=== PATIENT | male | born 1960 | race Caucasian/White ===

== ENCOUNTER 2019-05-18 11:32 | Inpatient (IN) | payer BC ==
[~2019-05-18] VITALS: Ht 180.3 cm; Wt 119.3 kg
[2019-05-18] MEDS ORDERED: MORPHINE SULFATE 10 MG/ML VIAL. IV STA ×2 (13:14→15:08)
[2019-05-18] MEDS ORDERED: ONDANSETRON PF 4 MG/2 ML VIAL. IV ONE (13:15)
[2019-05-18] MEDS ORDERED: IV NORMAL SALINE 1000ML BAG 1,000 ML IV ONE (13:15)
[2019-05-18 13:26] LABS: BASO % 0 % (0-3); EOS # 0.1 x10^3/uL (0.0-0.7); EOS % 1 % (0-3); HEMATOCRIT 45.2 % (39.0-53.0); HEMOGLOBIN 14.9 g/dL (13.0-17.5); LYMPH % 21 % (24-48); MEAN CORPUSCULAR HEMOGLOBIN 29 pg (25-35); MEAN CORPUSCULAR HGB CONC 33 g/dL (31-37); MEAN CORPUSCULAR VOLUME 88 fL (79-100); MONO # 0.4 x10^3/uL (0.0-1.1); MONO % 8 % (0-9); NEUT # 3.4 x10^3/uL (1.8-7.7); NEUT % 70 % (31-73); PLATELET COUNT 163 x10^3/uL (140-400); RED BLOOD COUNT 5.15 x10^6/uL (4.30-5.70); WHITE BLOOD COUNT 4.9 x10^3/uL (4.0-11.0)
[2019-05-18 13:29] LABS: BILIRUBIN,URINE NEGATIVE (NEG); CLARITY,URINE CLEAR; COLOR,URINE YELLOW; NITRITE,URINE NEGATIVE (NEG); PH,URINE 5.5; PROTEIN,URINE NEGATIVE (NEG-TRACE); UROBILINOGEN,URINE 0.2 mg/dL (0.2 mg/dL)
--- NOTE | 2019-05-18 13:34 | PHYS DOC ---
Past Medical History Past Medical History: Anxiety, Constipation, Diabetes-Type II, Diverticulosis, High Cholesterol Additional Past Medical Histor: OBESITY Past Surgical History: Cholecystectomy, Tonsillectomy, Other Additional Past Surgical Histo: KNEE, L BICEP Alcohol Use: None Drug Use: None Adult General Chief Complaint Chief Complaint: ABDOMINAL PAIN HPI HPI Patient is a 59 year old male who presents with Moisés pain. Patient states that in early April he was moving and feels that he tore something in his abdomen and since then has been having decreasing bowel movements. He states the last 3-4 weeks he is not been able to have a bowel movement, states that he has had a couple of times recent pellets, or a little bit diarrhea. The patient also stating he is feeling nauseous. Last week he is tried MiraLAX and stool softeners and has not helped. Pain is 8 out of 10 in severity and sharp. Pain is located in the right lower quadrant. Review of Systems Review of Systems Constitutional: Denies fever or chills [] Eyes: Denies change in visual acuity, redness, or eye pain [] HENT: Denies nasal congestion or sore throat [] Respiratory: Denies cough or shortness of breath [] Cardiovascular: No additional information not addressed in HPI [] GI: Reports abdominal pain, nausea, and constipation. : Denies dysuria or hematuria [] Musculoskeletal: Denies back pain or joint pain [] Integument: Denies rash or skin lesions [] Neurologic: Denies headache, focal weakness or sensory changes [] Endocrine: Denies polyuria or polydipsia [] Complete systems were reviewed and found to be within normal limits, except as documented in this note. Current Medications Current Medications Current Medications Medications (Trade) Dose Ordered Sig/Romi Start Time Stop Time Status Last Admin Dose Admin Cefazolin Sodium/ Dextrose 50 ml @ 100 mls/hr 1X STAT 05/18/19 15:47 05/18/19 16:16 DC Info (CONTRAST GIVEN -- Rx MONITORING) 1 each PRN DAILY PRN 05/18/19 14:00 05/20/19 13:59 Iohexol (Omnipaque 300 Mg/ml) 75 ml 1X ONCE 05/18/19 13:45 05/18/19 13:49 DC 05/18/19 13:59 75 ML Morphine Sulfate (Morphine Sulfate) 5 mg 1X STAT 05/18/19 15:08 05/18/19 15:10 DC 05/18/19 15:23 5 MG Ondansetron HCl (Zofran) 4 mg 1X ONCE 05/18/19 13:15 05/18/19 13:19 DC 05/18/19 13:33 4 MG Sodium Chloride 1,000 ml @ 1,000 mls/hr 1X ONCE 05/18/19 13:15 05/18/19 14:14 DC 05/18/19 13:32 1,000 MLS/HR Vancomycin HCl 2 gm/Sodium Chloride 500 ml @ 250 mls/hr 1X ONCE 05/18/19 16:30 05/18/19 18:29 Allergies Allergies Allergies Coded Allergies Type Severity Reaction Last Updated Verified codeine Allergy Intermediate 05/18/19 Yes prochlorperazine Allergy Intermediate 05/18/19 Yes Physical Exam Physical Exam Constitutional: Well developed, well nourished, no acute distress, non-toxic ap pearance. [] HENT: Normocephalic, atraumatic, bilateral external ears normal, oropharynx moist, no oral exudates, nose normal. [] Eyes: PERRLA, EOMI, conjunctiva normal, no discharge. [] Neck: Normal range of motion, no tenderness, supple, no stridor. [] Cardiovascular:Heart rate regular rhythm, no murmur [] Lungs & Thorax: Bilateral breath sounds clear to auscultation [] Abdomen: Bowel sounds hypoactive, soft, RLQ tenderness with guarding and warmth. There is mild erythema on lower abdomen. Skin: mild erythema on abdomen. Neurologic: Alert and oriented X 3, normal motor function, normal sensory function, no focal deficits noted. [] Psychologic: Affect normal, judgement normal, mood normal. [] Current Patient Data Vital Signs Vital Signs Date Time Temp Pulse Resp B/P (MAP) Pulse Ox O2 Delivery O2 Flow Rate FiO2 05/18/19 11:32 97.8 98 18 156/100 (118) 94 Room Air 97.8 Lab Values Laboratory Tests Test 05/18/19 13:00 White Blood Count 4.9 x10^3/uL (4.0-11.0) Red Blood Count 5.15 x10^6/uL (4.30-5.70) Hemoglobin 14.9 g/dL (13.0-17.5) Hematocrit 45.2 % (39.0-53.0) Mean Corpuscular Volume 88 fL (79-100) Mean Corpuscular Hemoglobin 29 pg (25-35) Mean Corpuscular Hemoglobin Concent 33 g/dL (31-37) Red Cell Distribution Width 15.0 % (11.5-14.5) H Platelet Count 163 x10^3/uL (140-400) Neutrophils (%) (Auto) 70 % (31-73) Lymphocytes (%) (Auto) 21 % (24-48) L Monocytes (%) (Auto) 8 % (0-9) Eosinophils (%) (Auto) 1 % (0-3) Basophils (%) (Auto) 0 % (0-3) Neutrophils # (Auto) 3.4 x10^3/uL (1.8-7.7) Lymphocytes # (Auto) 1.0 x10^3/uL (1.0-4.8) Monocytes # (Auto) 0.4 x10^3/uL (0.0-1.1) Eosinophils # (Auto) 0.1 x10^3/uL (0.0-0.7) Basophils # (Auto) 0.0 x10^3/uL (0.0-0.2) Urine Collection Type Unknown Urine Color Yellow Urine Clarity Clear Urine pH 5.5 Urine Specific [place] >=1.030 Urine Protein Negative mg/dL (NEG-TRACE) Urine Glucose (UA) >=1000 mg/dL (NEG) Urine Ketones (Stick) Trace mg/dL (NEG) Urine Blood Negative (NEG) Urine Nitrite Negative (NEG) Urine Bilirubin Negative (NEG) Urine Urobilinogen Dipstick 0.2 mg/dL (0.2 mg/dL) Urine Leukocyte Esterase Negative (NEG) Urine RBC Occ /HPF (0-2) Urine WBC Occ /HPF (0-4) Urine Squamous Epithelial Cells Few /LPF Urine Bacteria 0 /HPF (0-FEW) Urine Mucus Slight /LPF Sodium Level 139 mmol/L (136-145) Potassium Level 4.2 mmol/L (3.5-5.1) Chloride Level 102 mmol/L (98-107) Carbon Dioxide Level 30 mmol/L (21-32) Anion Gap 7 (6-14) Blood Urea Nitrogen 8 mg/dL (8-26) Creatinine 0.7 mg/dL (0.7-1.3) Estimated GFR (Cockcroft-Gault) 115.0 BUN/Creatinine Ratio 11 (6-20) Glucose Level 122 mg/dL (70-99) H Lactic Acid Level 1.6 mmol/L (0.4-2.0) Calcium Level 8.9 mg/dL (8.5-10.1) Total Bilirubin 0.7 mg/dL (0.2-1.0) Aspartate Amino Transferase (AST) 37 U/L (15-37) Alanine Aminotransferase (ALT) 41 U/L (16-63) Alkaline Phosphatase 56 U/L (46-116) Total Protein 7.3 g/dL (6.4-8.2) Albumin 3.8 g/dL (3.4-5.0) Albumin/Globulin Ratio 1.1 (1.0-1.7) Lipase 83 U/L (73-393) Laboratory Tests 05/18/19 13:00 Laboratory Tests 05/18/19 13:00 EKG EKG [] Radiology/Procedures Radiology/Procedures [][facility] [address] [place] [address] IMAGING REPORT Signed PATIENT: WENDY MAHONEY ACCOUNT: [id number] : 1960 LOCATION: ER AGE: 59 SEX: M EXAM STATUS: REG ER ORD. PHYSICIAN: BRITTNEY GILMORE APRN REASON: RLQ abdominal pain, nausea, no BM PROCEDURE: CT ABD PELV W/ IV CONTRST ONLY CT study of the abdomen and pelvis with contrast Clinical indications: Right lower quadrant abdominal pain with nausea. No bowel movement. TECHNIQUE: After IV infusion of 75 cc of Omnipaque 300, helical CT scanning of the abdomen and pelvis was performed. No GI contrast was administered. This may decrease the sensitivity to detect GI tract pathology. PQRS compliance Statement One or more of the following individualized dose reduction techniques were utilized for this study: 1. Automated exposure control 2. Adjustment of the mA and/or kV according to patient size 3. Use of iterative reconstruction technique COMPARISON: None available. FINDINGS: Diffuse fatty infiltration of the liver is seen. The spleen is not enlarged. Fatty atrophy of the head and neck of the pancreas is seen. No pancreatic mass is seen. Gallbladder is surgically absent. No extrahepatic biliary ductal dilatation is seen. No adrenal mass is evident. Both kidneys are normal without hydronephrosis. No focal aneurysmal dilatation of the abdominal aorta is seen. No enlarged abdominal or pelvic lymphadenopathy is seen. Urinary bladder wall is smooth. The terminal ileum and appendix are normal. No obstructive bowel pattern is evident. No free air or free fluid or mesenteric edema is seen. No abnormal fecal retention is seen. Mild colonic diverticulosis is seen without diverticulitis. Calcified granuloma of the right middle lobe is seen. No lytic process is seen. IMPRESSION: There is subcutaneous edema of the lower abdominal wall on both sides more prominent on the right side. This could be due to bruising or cellulitis if there are clinical findings of such. No fluid collection or abscess is seen here. No anterior abdominal wall hernia is evident. No other acute abnormality of the abdomen or pelvis is seen. Electronically signed by: Laura Crandall MD (05/18/2019 2:25 PM) [id number] DICTATED and SIGNED BY: LAURA CRANDALL MD DATE: 05/18/19 1425 Course & Med Decision Making Course & Med Decision Making Pertinent Labs and Imaging studies reviewed. (See chart for details) Will get labs, CT, and UA. Will give supportive care. Labs, and UA are unremarkable. CT shows: IMPRESSION: There is subcutaneous edema of the lower abdominal wall on both sides more prominent on the right side. This could be due to bruising or cellulitis if there are clinical findings of such. No fluid collection or abscess is seen here. No anterior abdominal wall hernia is evident. No other acute abnormality of the abdomen or pelvis is seen. Electronically signed by: Laura Crandall MD (05/18/2019 2:25 PM) [id number] Discussed the case with Dr. Carroll who states that there is no intervention from general surgery standpoint. He suggests to just treat the cellulitis with labs being unremarkable. Dr. Ramirez (ER ATTENDING examined patient as well) will admit to hospital and place on [place]. Will page Dr. Bryson. Discussed with Dr. Bryson ([id number]) who accepts admission to hospital. Will order Vancomycin. Mateo Disclaimer Mateo Disclaimer This electronic medical record was generated, in whole or in part, using a voice recognition dictation system. Departure Departure Impression: Primary Impression: Cellulitis Additional Impression: Intractable abdominal pain Disposition: ADMITTED INPATIENT Admitting Physician: LELAND Condition: STABLE Referrals: [facility] [facility] REPRESENTATIVE (PCP) Problem Qualifiers Primary Impression: Cellulitis Site of cellulitis: other site Qualified Codes: L03.818 - Cellulitis of other sites BRITTNEY GILMORE APRN May 18, 2019 13:34
[2019-05-18 13:36] LABS: CALCIUM 8.9 mg/dL (8.5-10.1); CREATININE 0.7 mg/dL (0.7-1.3); POTASSIUM 4.2 mmol/L (3.5-5.1)
[2019-05-18 13:39] LABS: SQUAMOUS EPITHELIAL CELL,UR FEW /LPF
[2019-05-18 13:40] LABS: BACTERIA,URINE 0 /HPF (0-FEW); RBC,URINE OCC /HPF (0-2); WBC,URINE OCC /HPF (0-4)
[2019-05-18] MEDS ORDERED: IOHEXOL 300 MG/ML 100ML VIAL. IV ONE (13:45)
[2019-05-18 13:49] LABS: ALBUMIN 3.8 g/dL (3.4-5.0); ALBUMIN/GLOBULIN RATIO 1.1 (1.0-1.7); TOTAL BILIRUBIN 0.7 mg/dL (0.2-1.0); TOTAL PROTEIN 7.3 g/dL (6.4-8.2)
[2019-05-18] MEDS ORDERED: CONTRAST GIVEN. MC PRN (14:00)
--- NOTE | 2019-05-18 14:28 | RAD ---
CT study of the abdomen and pelvis with contrast Clinical indications: Right lower quadrant abdominal pain with nausea. No bowel movement. TECHNIQUE: After IV infusion of 75 cc of Omnipaque 300, helical CT scanning of the abdomen and pelvis was performed. No GI contrast was administered. This may decrease the sensitivity to detect GI tract pathology. PQRS compliance Statement One or more of the following individualized dose reduction techniques were utilized for this study: 1. Automated exposure control 2. Adjustment of the mA and/or kV according to patient size 3. Use of iterative reconstruction technique COMPARISON: None available. FINDINGS: Diffuse fatty infiltration of the liver is seen. The spleen is not enlarged. Fatty atrophy of the head and neck of the pancreas is seen. No pancreatic mass is seen. Gallbladder is surgically absent. No extrahepatic biliary ductal dilatation is seen. No adrenal mass is evident. Both kidneys are normal without hydronephrosis. No focal aneurysmal dilatation of the abdominal aorta is seen. No enlarged abdominal or pelvic lymphadenopathy is seen. Urinary bladder wall is smooth. The terminal ileum and appendix are normal. No obstructive bowel pattern is evident. No free air or free fluid or mesenteric edema is seen. No abnormal fecal retention is seen. Mild colonic diverticulosis is seen without diverticulitis. Calcified granuloma of the right middle lobe is seen. No lytic process is seen. IMPRESSION: There is subcutaneous edema of the lower abdominal wall on both sides more prominent on the right side. This could be due to bruising or cellulitis if there are clinical findings of such. No fluid collection or abscess is seen here. No anterior abdominal wall hernia is evident. No other acute abnormality of the abdomen or pelvis is seen. Electronically signed by: Yahir Crandall MD (05/18/2019 2:25 PM) [id number]
[2019-05-18] MEDS ORDERED: ONDANSETRON PF 4 MG/2 ML VIAL. IV PRN ×2 (16:30→20:30)
[2019-05-18] MEDS ORDERED: VANCOMYCIN 2 GM in IV NORMAL SALINE 500ML BAG 500 ML IV ONE (16:30)
[2019-05-18] MEDS ORDERED: MORPHINE SULFATE 4 MG/ML VIAL. IV PRN (16:30)
--- NOTE | 2019-05-18 17:12 | PDOC1 ---
History and Physical Date of Admission Date of Admission DATE: 05/18/19 TIME: 17:09 Identification/Chief Complaint Chief Complaint Abdominal Pain Source Source: Patient History of Present Illness History of Present Illness Mr Thompson is a 59yo M w/ PMHx Anxiety, Constipation, Diabetes-Type II, Diverticulosis, High Cholesterol, obesity, who p/w abdominal pain. Patient states that in early April he was moving and feels that he tore something in his abdomen and since then has been having decreasing bowel movements. He states the last 3-4 weeks he is not been able to have a bowel movement, states that he has had a couple of times recent pellets, or a little bit diarrhea. The patient also stating he is feeling nauseous. Last week he is tried MiraLAX and stool softeners and has not helped. Pain is 8 out of 10 in severity and sharp. Pain is located in the right lower quadrant. He does note he injects insulin, but states his injection sites are lower than his symptom site. Abdominal CT consistent with abdominal wall cellulitis, no intraabdominal pathology other than diverticulosis. He notes his bowel movements have been different ever since his cholecystectomy. Past Medical History Cardiovascular: Hyperlipidemia Psych: Anxiety Endocrine: Diabetes Past Surgical History Past Surgical History: Cholecystectomy, Total knee replacement, Tonsillectomy Family History Family History: Diabetes, High Cholestrol Social History Smoke: No ALCOHOL: none Drugs: None Current Problem List Problem List Problems Medical Problems: (1) Cellulitis Status: Acute (2) Intractable abdominal pain Status: Acute Current Medications Current Medications Current Medications Sodium Chloride 1,000 ml @ 1,000 mls/hr 1X ONCE IV Last administered on 05/18/19at 13:32; Start 05/18/19 at 13:15; Stop 05/18/19 at 14:14; Status DC Ondansetron HCl (Zofran) 4 mg 1X ONCE IV Last administered on 05/18/19at 13:33; Start 05/18/19 at 13:15; Stop 05/18/19 at 13:19; Status DC Morphine Sulfate (Morphine Sulfate) 5 mg 1X STAT IV Last administered on 05/18/19at 13:33; Start 05/18/19 at 13:14; Stop 05/18/19 at 13:24; Status DC Iohexol (Omnipaque 300 Mg/ml) 75 ml 1X ONCE IV Last administered on 05/18/19at 13:59; Start 05/18/19 at 13:45; Stop 05/18/19 at 13:49; Status DC Info (CONTRAST GIVEN -- Rx MONITORING) 1 each PRN DAILY PRN MC SEE COMMENTS; Start 05/18/19 at 14:00; Stop 05/20/19 at 13:59 Morphine Sulfate (Morphine Sulfate) 5 mg 1X STAT IV Last administered on 05/18/19at 15:23; Start 05/18/19 at 15:08; Stop 05/18/19 at 15:10; Status DC Cefazolin Sodium/ Dextrose 50 ml @ 100 mls/hr 1X STAT IV Last administered on 05/18/19at 16:24; Start 05/18/19 at 15:47; Stop 05/18/19 at 16:16; Status DC Vancomycin HCl 2 gm/Sodium Chloride 500 ml @ 250 mls/hr 1X ONCE IV ; Start 05/18/19 at 16:30; Stop 05/18/19 at 18:29 Ondansetron HCl (Zofran) 4 mg PRN Q8HRS PRN IV NAUSEA/VOMITING; Start 05/18/19 at 16:30; Stop 05/19/19 at 16:29 Morphine Sulfate (Morphine Sulfate) 4 mg PRN Q2HR PRN IV PAIN; Start 05/18/19 at 16:30; Stop 05/19/19 at 16:29 Allergies Allergies: Coded Allergies: codeine (Verified Allergy, Intermediate, 05/18/19) prochlorperazine (Verified Allergy, Intermediate, 05/18/19) ROS General: YES: Fatigue, Malaise; No: Chills, Night Sweats, Appetite, Other PSYCHOLOGICAL ROS: No: Anxiety, Behavioral Disorder, Concentration difficultie, Decreased libido, Depression, Disorientation, Hallucinations, Hostility, Irritablity, Memory difficulties, Mood Swings, Obsessive thoughts, Physical abuse, Sexual abuse, Sleep disturbances, Suicidal ideation, Other Eyes: No Blurry vision, No Decreased vision, No Double vision, No Dry eyes, No Excessive tearing, No Eye Pain, No Itchy Eyes, No Loss of vision, No Photophobia, No Scotomata, No Uses contacts, No Uses glasses, No Other HEENT: No: Heacaches, Visual Changes, Hearing change, Nasal congestion, Nasal discharge, Oral lesions, Sinus pain, Sore Throat, Epistaxis, Sneezing, Snoring, Tinnitus, Vertigo, Vocal changes, Other ALLERGY AND IMMUNOLOGY: No: Hives, Insect Bite Sensitivity, Itchy/Watery Eyes, Nasal Congestion, Post Nasal Drip, Seasonal Allergies, Other Hematological and Lymphatic: No: Bleeding Problems, Blood Clots, Blood Transfusions, Brusing, Night Sweats, Pallor, Swollen Lymph Nodes, Other ENDOCRINE: No: Breast Changes, Galactorrhea, Hair Pattern Changes, Hot Flashes, Malaise/lethargy, Mood Swings, Palpitations, Polydipsia/polyuria, Skin Changes, Temperature Intolerance, Unexpected Weight Changes, Other Breast: No New/Changing Breast Lumps, No Nipple changes, No Nipple discharge, No Other Respiratory: No: Cough, Hemoptysis, Orthopnea, Pleuritic Pain, Shortness of breath, SOB with excertion, Sputum Changes, Stridor, Tachypnea, Wheezing, Other Cardiovascular: No Chest Pain, No Palpitations, No Orthopnea, No Paroxysmal Noc. Dyspnea, No Edema, No Lt Headedness, No Other Gastrointestinal: Yes Nausea, Yes Abdominal Pain, Yes Diarrhea, Yes Constipation; No Vomiting, No Melena, No Hematochezia, No Other Genitourinary: No Dysuria, No Frequency, No Incontinence, No Hematuria, No Retention, No Discharge, No Urgency, No Pain, No Flank Pain, No Other, No , No , No , No , No , No , No Musculoskeletal: No Gait Disturbance, No Joint Pain, No Joint Stiffness, No Joint Swelling, No Muscle Pain, No Muscular Weakness, No Pain In:, No Swelling In:, No Other Neurological: No Behavorial Changes, No Bowel/Bladder ControlChng, No Confusion, No Dizziness, No Gait Disturbance, No Headaches, No Impaired Coord/balance, No Memory Loss, No Numbness/Tingling, No Seizures, No Speech Problems, No Tremors, No Visual Changes, No Weakness, No Other Skin: No Dry Skin, No Eczema, No Hair Changes, No Lumps, No Mole Changes, No Mottling, No Nail Changes, No Pruritus, No Rash, No Skin Lesion Changes, No Other, No Acne Physical Exam General: Alert, Oriented X3, Cooperative, No acute distress HEENT: Atraumatic, PERRLA, EOMI, Mucous membr. moist/pink Lungs: Clear to auscultation, Normal air movement Heart: S1S2, RRR, no thrills, no rubs, no gallops, no murmurs Abdomen: Normal bowel sounds, No hepatosplenomegaly, No masses, Other (diffusely tender, red, warm on right abdominal wall, marked) Rectal Exam: not examined Extremities: No clubbing, No cyanosis, No edema, Normal pulses, No tenderness/swelling Skin: No breakdown, No significant lesion, Other (Abdominal rash on right abdominal wall) Neuro: Normal gait, Normal speech, Strength at 5/5 X4 ext, Normal tone, Sensation intact, Cranial nerves 3-12 NL, Reflexes 2+ Psych/Mental Status: Mental status NL, Mood NL Vitals Vitals Vital Signs Date Time Temp Pulse Resp B/P (MAP) Pulse Ox O2 Delivery O2 Flow Rate FiO2 05/18/19 11:32 97.8 98 18 156/100 (118) 94 Room Air 97.8 Labs Labs Laboratory Tests Test 05/18/19 13:00 White Blood Count 4.9 x10^3/uL (4.0-11.0) Red Blood Count 5.15 x10^6/uL (4.30-5.70) Hemoglobin 14.9 g/dL (13.0-17.5) Hematocrit 45.2 % (39.0-53.0) Mean Corpuscular Volume 88 fL (79-100) Mean Corpuscular Hemoglobin 29 pg (25-35) Mean Corpuscular Hemoglobin Concent 33 g/dL (31-37) Red Cell Distribution Width 15.0 % (11.5-14.5) Platelet Count 163 x10^3/uL (140-400) Neutrophils (%) (Auto) 70 % (31-73) Lymphocytes (%) (Auto) 21 % (24-48) Monocytes (%) (Auto) 8 % (0-9) Eosinophils (%) (Auto) 1 % (0-3) Basophils (%) (Auto) 0 % (0-3) Neutrophils # (Auto) 3.4 x10^3/uL (1.8-7.7) Lymphocytes # (Auto) 1.0 x10^3/uL (1.0-4.8) Monocytes # (Auto) 0.4 x10^3/uL (0.0-1.1) Eosinophils # (Auto) 0.1 x10^3/uL (0.0-0.7) Basophils # (Auto) 0.0 x10^3/uL (0.0-0.2) Urine Collection Type Unknown Urine Color Yellow Urine Clarity Clear Urine pH 5.5 Urine Specific [place] >=1.030 Urine Protein Negative mg/dL (NEG-TRACE) Urine Glucose (UA) >=1000 mg/dL (NEG) Urine Ketones (Stick) Trace mg/dL (NEG) Urine Blood Negative (NEG) Urine Nitrite Negative (NEG) Urine Bilirubin Negative (NEG) Urine Urobilinogen Dipstick 0.2 mg/dL (0.2 mg/dL) Urine Leukocyte Esterase Negative (NEG) Urine RBC Occ /HPF (0-2) Urine WBC Occ /HPF (0-4) Urine Squamous Epithelial Cells Few /LPF Urine Bacteria 0 /HPF (0-FEW) Urine Mucus Slight /LPF Sodium Level 139 mmol/L (136-145) Potassium Level 4.2 mmol/L (3.5-5.1) Chloride Level 102 mmol/L (98-107) Carbon Dioxide Level 30 mmol/L (21-32) Anion Gap 7 (6-14) Blood Urea Nitrogen 8 mg/dL (8-26) Creatinine 0.7 mg/dL (0.7-1.3) Estimated GFR (Cockcroft-Gault) 115.0 BUN/Creatinine Ratio 11 (6-20) Glucose Level 122 mg/dL (70-99) Lactic Acid Level 1.6 mmol/L (0.4-2.0) Calcium Level 8.9 mg/dL (8.5-10.1) Total Bilirubin 0.7 mg/dL (0.2-1.0) Aspartate Amino Transf (AST/SGOT) 37 U/L (15-37) Alanine Aminotransferase (ALT/SGPT) 41 U/L (16-63) Alkaline Phosphatase 56 U/L (46-116) Total Protein 7.3 g/dL (6.4-8.2) Albumin 3.8 g/dL (3.4-5.0) Albumin/Globulin Ratio 1.1 (1.0-1.7) Lipase 83 U/L (73-393) Laboratory Tests Test 05/18/19 13:00 White Blood Count 4.9 x10^3/uL (4.0-11.0) Red Blood Count 5.15 x10^6/uL (4.30-5.70) Hemoglobin 14.9 g/dL (13.0-17.5) Hematocrit 45.2 % (39.0-53.0) Mean Corpuscular Volume 88 fL (79-100) Mean Corpuscular Hemoglobin 29 pg (25-35) Mean Corpuscular Hemoglobin Concent 33 g/dL (31-37) Red Cell Distribution Width 15.0 % (11.5-14.5) Platelet Count 163 x10^3/uL (140-400) Neutrophils (%) (Auto) 70 % (31-73) Lymphocytes (%) (Auto) 21 % (24-48) Monocytes (%) (Auto) 8 % (0-9) Eosinophils (%) (Auto) 1 % (0-3) Basophils (%) (Auto) 0 % (0-3) Neutrophils # (Auto) 3.4 x10^3/uL (1.8-7.7) Lymphocytes # (Auto) 1.0 x10^3/uL (1.0-4.8) Monocytes # (Auto) 0.4 x10^3/uL (0.0-1.1) Eosinophils # (Auto) 0.1 x10^3/uL (0.0-0.7) Basophils # (Auto) 0.0 x10^3/uL (0.0-0.2) Urine Collection Type Unknown Urine Color Yellow Urine Clarity Clear Urine pH 5.5 Urine Specific [place] >=1.030 Urine Protein Negative mg/dL (NEG-TRACE) Urine Glucose (UA) >=1000 mg/dL (NEG) Urine Ketones (Stick) Trace mg/dL (NEG) Urine Blood Negative (NEG) Urine Nitrite Negative (NEG) Urine Bilirubin Negative (NEG) Urine Urobilinogen Dipstick 0.2 mg/dL (0.2 mg/dL) Urine Leukocyte Esterase Negative (NEG) Urine RBC Occ /HPF (0-2) Urine WBC Occ /HPF (0-4) Urine Squamous Epithelial Cells Few /LPF Urine Bacteria 0 /HPF (0-FEW) Urine Mucus Slight /LPF Sodium Level 139 mmol/L (136-145) Potassium Level 4.2 mmol/L (3.5-5.1) Chloride Level 102 mmol/L (98-107) Carbon Dioxide Level 30 mmol/L (21-32) Anion Gap 7 (6-14) Blood Urea Nitrogen 8 mg/dL (8-26) Creatinine 0.7 mg/dL (0.7-1.3) Estimated GFR (Cockcroft-Gault) 115.0 BUN/Creatinine Ratio 11 (6-20) Glucose Level 122 mg/dL (70-99) Lactic Acid Level 1.6 mmol/L (0.4-2.0) Calcium Level 8.9 mg/dL (8.5-10.1) Total Bilirubin 0.7 mg/dL (0.2-1.0) Aspartate Amino Transf (AST/SGOT) 37 U/L (15-37) Alanine Aminotransferase (ALT/SGPT) 41 U/L (16-63) Alkaline Phosphatase 56 U/L (46-116) Total Protein 7.3 g/dL (6.4-8.2) Albumin 3.8 g/dL (3.4-5.0) Albumin/Globulin Ratio 1.1 (1.0-1.7) Lipase 83 U/L (73-393) Images Images CT abdomen/pelvis - Diffuse fatty infiltration of the liver is seen. The spleen is not enlarged. Fatty atrophy of the head and neck of the pancreas is seen. No pancreatic mass is seen. Gallbladder is surgically absent. No extrahepatic biliary ductal dilatation is seen. No adrenal mass is evident. Both kidneys are normal without hydronephrosis. No focal aneurysmal dilatation of the abdominal aorta is seen. No enlarged abdominal or pelvic lymphadenopathy is seen. Urinary bladder wall is smooth. The terminal ileum and appendix are normal. No obstructive bowel pattern is evident. No free air or free fluid or mesenteric edema is seen. No abnormal fecal retention is seen. Mild colonic diverticulosis is seen without diverticulitis. Calcified granuloma of the right middle lobe is seen. No lytic process is seen. IMPRESSION: There is subcutaneous edema of the lower abdominal wall on both sides more prominent on the right side. This could be due to bruising or cellulitis if there are clinical findings of such. No fluid collection or abscess is seen here. No anterior abdominal wall hernia is evident. No other acute abnormality of the abdomen or pelvis is seen. VTE Prophylaxis Ordered VTE Prophylaxis Devices: Yes VTE Pharmacological Prophylaxi: Yes Assessment/Plan Assessment/Plan A/P: Abdominal wall cellulitis - empiric vancomycin and ancef for staph and strep coverage. Change insulin injection sites Intractable abdominal pain - unable to take PO currently due to nausea with pain. Will treat with IV anti-emetics and IV pain medication Headache - will trial on IV toradol Anxiety - counseled on relaxation Constipation - with Diverticulosis - will increase fiber High Cholesterol - will reconcile meds, statin Diabetes-Type II - basal bolus plus insulin while inpatient Fatty liver - found on CT, likely related to DM2, weight Obesity - counseled on weight loss, diet FEN - ADA diet PPX - lovenox FULL CODE Dispo - inpatient for abdominal pain. SARAH CHUNG MD May 18, 2019 17:12
[2019-05-18] MEDS ORDERED: ACETAMINOPHEN 500 MG TABLET PO STA (17:56)
[2019-05-18] MEDS ORDERED: DEXTROSE 50% 25 GM / 50ML DISP.SYRIN. IV PRN (20:30)
[2019-05-18] MEDS ORDERED: oxyCODONE/APAP 5/325 1 TAB TABLET PO PRN (20:30)
[2019-05-18] MEDS ORDERED: VANCOMYCIN PER PHARMACY MC PRN (20:30)
[2019-05-18] MEDS ORDERED: DICYCLOMINE HCL 10 MG CAPSULE PO PRN (20:30)
[2019-05-18] MEDS ORDERED: ACETAMINOPHEN 500 MG TABLET PO PRN (20:30)
[2019-05-18] MEDS ORDERED: IV DEXTROSE 5% 250 ML BAG. IV PRN (20:30)
[2019-05-18] MEDS ORDERED: KETOROLAC 30 MG/ML VIAL. IVP PRN (20:30)
--- NOTE | 2019-05-18 20:43 | NUR ---
Pharmacy Vancomycin Dosing Note S:Consulted to monitor and dose vancomycin started 05/18/19. O:WENDY MAHONEY is a 59 year old M with abdominal wall cellulitis. Height: 5 feet, 11 inches Weight: 130.6 kg Dosing Weight: Actual Other Antibiotics: CEFAZOLIN 2G IV Q8HRS LABS: Last BUN: 8 Last Creatinine: 0.7 Creatinine Clearance: > 120 mL/min Last WBC: 4.9 Tmax (past 24 hours): 97.8 Microbiology: N/A A: Patient requires vancomycin for abdominal wall cellulitis, goal trough 10-20 mcg/ml. His SCr is 0.7 with an eCrCl of > 120 ml/min. Initiate the following: P: 1. Initiate Vancomycin 2000 mg IV x 1 dose, then 1500 mg IV q8h 2. Follow up Trough level on 05/19/19 at 1630 3. Pharmacy will continue to monitor, follow and adjust therapy as needed. CHICO EWING [facility], 05/18/19 [id number]
[2019-05-18 21:00] VITALS: BP 117/74
[2019-05-18] MEDS: PSYLLIUM HUSK (SUGAR FREE) 1 PKT PACKET PO SCH (22:04)
[2019-05-18] MEDS: INSULIN LISPRO 300 UNITS/3 ML VIAL. SQ SCH (22:10)
[2019-05-18 23:00] VITALS: BP 125/63
[2019-05-19] MEDS: VANCOMYCIN 1.5 GM in IV NORMAL SALINE 500ML BAG 500 ML IV SCH ×2 (00:32→10:03)
[2019-05-19 03:00] VITALS: BP 131/71
--- NOTE | 2019-05-19 03:52 | NUR ---
Patient arrived to floor on 05/18/19 @ 1935 hours. This RN received report from [facility]. Patient arrived to floor accompanied by his . Patient currently has a pain rating of 7 out of 10. Patient complaint of pain in right medial abdomen, describes it as throbbing and comes in intervals. Patient stomach displays no signs of redness. Patient bed was placed in the lowest position and locked. Call light was placed within reach of the patient. This RN will continue to monitor the patient.
[2019-05-19 06:48] LABS: CREATININE 0.6 mg/dL (0.7-1.3); GFR 137.4
[2019-05-19 07:00] VITALS: BP 126/62
[2019-05-19] MEDS: INSULIN LISPRO 300 UNITS/3 ML VIAL. SQ SCH ×4 (07:30→21:00)
[2019-05-19] MEDS ORDERED: VANCOMYCIN 1.75 GM in IV NORMAL SALINE 500ML BAG 500 ML IV SCH (07:30)
--- NOTE | 2019-05-19 08:22 | PDOC ---
PROGRESS NOTES Chief Complaint Chief Complaint A/P: Abdominal wall cellulitis - empiric vancomycin and ancef for staph and strep coverage. Change insulin injection sites. Will change to PO antibiotics given his improvement Intractable abdominal pain - unable to take PO currently due to nausea with pain. Will treat with IV anti-emetics and IV pain medication Headache - will trial on IV toradol Anxiety - counseled on relaxation Constipation - with Diverticulosis - will increase fiber High Cholesterol - will reconcile meds, statin Diabetes-Type II - basal bolus plus insulin while inpatient Fatty liver - found on CT, likely related to DM2, weight Obesity - counseled on weight loss, diet FEN - ADA diet PPX - lovenox FULL CODE Dispo - inpatient for abdominal pain. History of Present Illness History of Present Illness Mr Thompson is a 59yo M w/ PMHx Anxiety, Constipation, Diabetes-Type II, Diverticulosis, High Cholesterol, obesity, who p/w abdominal pain. Patient states that in early April he was moving and feels that he tore something in his abdomen and since then has been having decreasing bowel movements. He states the last 3-4 weeks he is not been able to have a bowel movement, states that he has had a couple of times recent pellets, or a little bit diarrhea. The patient also stating he is feeling nauseous. Last week he is tried MiraLAX and stool softeners and has not helped. Pain is 8 out of 10 in severity and sharp. Pain is located in the right lower quadrant. He does note he injects insulin, but states his injection sites are lower than his symptom site. Abdominal CT consistent with abdominal wall cellulitis, no intraabdominal pathology other than diverticulosis. He notes his bowel movements have been different. His abdominal wall has improved, but his bowels have worsened, had voluminous watery BM this morning. No change in his appetite, eating very well. On further review, notes he has had multiple prior colonoscopies. Vitals Vitals Vital Signs Date Time Temp Pulse Resp B/P (MAP) Pulse Ox O2 Delivery O2 Flow Rate FiO2 05/19/19 07:00 98.4 80 18 126/62 (83) 94 Room Air 98.4 Physical Exam General: Alert, Oriented X3, Cooperative, No acute distress Abdomen: Normal bowel sounds, No hepatosplenomegaly, No masses, Other (diffusely tender, red, warm on right abdominal wall, marked) Extremities: No clubbing, No cyanosis, No edema, Normal pulses, No tenderness/swelling Skin: No breakdown, No significant lesion, Other (Abdominal rash on right abdominal wall) Labs LABS Laboratory Tests Test 05/18/19 13:00 05/18/19 18:37 05/18/19 20:34 05/19/19 04:13 White Blood Count 4.9 x10^3/uL (4.0-11.0) Red Blood Count 5.15 x10^6/uL (4.30-5.70) Hemoglobin 14.9 g/dL (13.0-17.5) Hematocrit 45.2 % (39.0-53.0) Mean Corpuscular Volume 88 fL (79-100) Mean Corpuscular Hemoglobin 29 pg (25-35) Mean Corpuscular Hemoglobin Concent 33 g/dL (31-37) Red Cell Distribution Width 15.0 % (11.5-14.5) Platelet Count 163 x10^3/uL (140-400) Neutrophils (%) (Auto) 70 % (31-73) Lymphocytes (%) (Auto) 21 % (24-48) Monocytes (%) (Auto) 8 % (0-9) Eosinophils (%) (Auto) 1 % (0-3) Basophils (%) (Auto) 0 % (0-3) Neutrophils # (Auto) 3.4 x10^3/uL (1.8-7.7) Lymphocytes # (Auto) 1.0 x10^3/uL (1.0-4.8) Monocytes # (Auto) 0.4 x10^3/uL (0.0-1.1) Eosinophils # (Auto) 0.1 x10^3/uL (0.0-0.7) Basophils # (Auto) 0.0 x10^3/uL (0.0-0.2) Urine Collection Type Unknown Urine Color Yellow Urine Clarity Clear Urine pH 5.5 Urine Specific [place] >=1.030 Urine Protein Negative mg/dL (NEG-TRACE) Urine Glucose (UA) >=1000 mg/dL (NEG) Urine Ketones (Stick) Trace mg/dL (NEG) Urine Blood Negative (NEG) Urine Nitrite Negative (NEG) Urine Bilirubin Negative (NEG) Urine Urobilinogen Dipstick 0.2 mg/dL (0.2 mg/dL) Urine Leukocyte Esterase Negative (NEG) Urine RBC Occ /HPF (0-2) Urine WBC Occ /HPF (0-4) Urine Squamous Epithelial Cells Few /LPF Urine Bacteria 0 /HPF (0-FEW) Urine Mucus Slight /LPF Sodium Level 139 mmol/L (136-145) Potassium Level 4.2 mmol/L (3.5-5.1) Chloride Level 102 mmol/L (98-107) Carbon Dioxide Level 30 mmol/L (21-32) Anion Gap 7 (6-14) Blood Urea Nitrogen 8 mg/dL (8-26) Creatinine 0.7 mg/dL (0.7-1.3) 0.6 mg/dL (0.7-1.3) Estimated GFR (Cockcroft-Gault) 115.0 137.4 BUN/Creatinine Ratio 11 (6-20) Glucose Level 122 mg/dL (70-99) Lactic Acid Level 1.6 mmol/L (0.4-2.0) Calcium Level 8.9 mg/dL (8.5-10.1) Total Bilirubin 0.7 mg/dL (0.2-1.0) Aspartate Amino Transf (AST/SGOT) 37 U/L (15-37) Alanine Aminotransferase (ALT/SGPT) 41 U/L (16-63) Alkaline Phosphatase 56 U/L (46-116) Total Protein 7.3 g/dL (6.4-8.2) Albumin 3.8 g/dL (3.4-5.0) Albumin/Globulin Ratio 1.1 (1.0-1.7) Lipase 83 U/L (73-393) Glucose (Fingerstick) 145 mg/dL (70-99) 227 mg/dL (70-99) Test 05/19/19 07:26 Glucose (Fingerstick) 137 mg/dL (70-99) Assessment and Plan Assessmemt and Plan Problems Medical Problems: (1) Cellulitis Status: Acute (2) Intractable abdominal pain Status: Acute Comment Review of Relevant I have reviewed the following items oma (where applicable) has been applied. Labs Laboratory Tests Test 05/18/19 13:00 05/18/19 18:37 05/18/19 20:34 05/19/19 04:13 White Blood Count 4.9 x10^3/uL (4.0-11.0) Red Blood Count 5.15 x10^6/uL (4.30-5.70) Hemoglobin 14.9 g/dL (13.0-17.5) Hematocrit 45.2 % (39.0-53.0) Mean Corpuscular Volume 88 fL (79-100) Mean Corpuscular Hemoglobin 29 pg (25-35) Mean Corpuscular Hemoglobin Concent 33 g/dL (31-37) Red Cell Distribution Width 15.0 % (11.5-14.5) Platelet Count 163 x10^3/uL (140-400) Neutrophils (%) (Auto) 70 % (31-73) Lymphocytes (%) (Auto) 21 % (24-48) Monocytes (%) (Auto) 8 % (0-9) Eosinophils (%) (Auto) 1 % (0-3) Basophils (%) (Auto) 0 % (0-3) Neutrophils # (Auto) 3.4 x10^3/uL (1.8-7.7) Lymphocytes # (Auto) 1.0 x10^3/uL (1.0-4.8) Monocytes # (Auto) 0.4 x10^3/uL (0.0-1.1) Eosinophils # (Auto) 0.1 x10^3/uL (0.0-0.7) Basophils # (Auto) 0.0 x10^3/uL (0.0-0.2) Urine Collection Type Unknown Urine Color Yellow Urine Clarity Clear Urine pH 5.5 Urine Specific [place] >=1.030 Urine Protein Negative mg/dL (NEG-TRACE) Urine Glucose (UA) >=1000 mg/dL (NEG) Urine Ketones (Stick) Trace mg/dL (NEG) Urine Blood Negative (NEG) Urine Nitrite Negative (NEG) Urine Bilirubin Negative (NEG) Urine Urobilinogen Dipstick 0.2 mg/dL (0.2 mg/dL) Urine Leukocyte Esterase Negative (NEG) Urine RBC Occ /HPF (0-2) Urine WBC Occ /HPF (0-4) Urine Squamous Epithelial Cells Few /LPF Urine Bacteria 0 /HPF (0-FEW) Urine Mucus Slight /LPF Sodium Level 139 mmol/L (136-145) Potassium Level 4.2 mmol/L (3.5-5.1) Chloride Level 102 mmol/L (98-107) Carbon Dioxide Level 30 mmol/L (21-32) Anion Gap 7 (6-14) Blood Urea Nitrogen 8 mg/dL (8-26) Creatinine 0.7 mg/dL (0.7-1.3) 0.6 mg/dL (0.7-1.3) Estimated GFR (Cockcroft-Gault) 115.0 137.4 BUN/Creatinine Ratio 11 (6-20) Glucose Level 122 mg/dL (70-99) Lactic Acid Level 1.6 mmol/L (0.4-2.0) Calcium Level 8.9 mg/dL (8.5-10.1) Total Bilirubin 0.7 mg/dL (0.2-1.0) Aspartate Amino Transf (AST/SGOT) 37 U/L (15-37) Alanine Aminotransferase (ALT/SGPT) 41 U/L (16-63) Alkaline Phosphatase 56 U/L (46-116) Total Protein 7.3 g/dL (6.4-8.2) Albumin 3.8 g/dL (3.4-5.0) Albumin/Globulin Ratio 1.1 (1.0-1.7) Lipase 83 U/L (73-393) Glucose (Fingerstick) 145 mg/dL (70-99) 227 mg/dL (70-99) Test 05/19/19 07:26 Glucose (Fingerstick) 137 mg/dL (70-99) Laboratory Tests Test 05/18/19 13:00 05/18/19 18:37 05/18/19 20:34 05/19/19 04:13 White Blood Count 4.9 x10^3/uL (4.0-11.0) Red Blood Count 5.15 x10^6/uL (4.30-5.70) Hemoglobin 14.9 g/dL (13.0-17.5) Hematocrit 45.2 % (39.0-53.0) Mean Corpuscular Volume 88 fL (79-100) Mean Corpuscular Hemoglobin 29 pg (25-35) Mean Corpuscular Hemoglobin Concent 33 g/dL (31-37) Red Cell Distribution Width 15.0 % (11.5-14.5) Platelet Count 163 x10^3/uL (140-400) Neutrophils (%) (Auto) 70 % (31-73) Lymphocytes (%) (Auto) 21 % (24-48) Monocytes (%) (Auto) 8 % (0-9) Eosinophils (%) (Auto) 1 % (0-3) Basophils (%) (Auto) 0 % (0-3) Neutrophils # (Auto) 3.4 x10^3/uL (1.8-7.7) Lymphocytes # (Auto) 1.0 x10^3/uL (1.0-4.8) Monocytes # (Auto) 0.4 x10^3/uL (0.0-1.1) Eosinophils # (Auto) 0.1 x10^3/uL (0.0-0.7) Basophils # (Auto) 0.0 x10^3/uL (0.0-0.2) Urine Collection Type Unknown Urine Color Yellow Urine Clarity Clear Urine pH 5.5 Urine Specific [place] >=1.030 Urine Protein Negative mg/dL (NEG-TRACE) Urine Glucose (UA) >=1000 mg/dL (NEG) Urine Ketones (Stick) Trace mg/dL (NEG) Urine Blood Negative (NEG) Urine Nitrite Negative (NEG) Urine Bilirubin Negative (NEG) Urine Urobilinogen Dipstick 0.2 mg/dL (0.2 mg/dL) Urine Leukocyte Esterase Negative (NEG) Urine RBC Occ /HPF (0-2) Urine WBC Occ /HPF (0-4) Urine Squamous Epithelial Cells Few /LPF Urine Bacteria 0 /HPF (0-FEW) Urine Mucus Slight /LPF Sodium Level 139 mmol/L (136-145) Potassium Level 4.2 mmol/L (3.5-5.1) Chloride Level 102 mmol/L (98-107) Carbon Dioxide Level 30 mmol/L (21-32) Anion Gap 7 (6-14) Blood Urea Nitrogen 8 mg/dL (8-26) Creatinine 0.7 mg/dL (0.7-1.3) 0.6 mg/dL (0.7-1.3) Estimated GFR (Cockcroft-Gault) 115.0 137.4 BUN/Creatinine Ratio 11 (6-20) Glucose Level 122 mg/dL (70-99) Lactic Acid Level 1.6 mmol/L (0.4-2.0) Calcium Level 8.9 mg/dL (8.5-10.1) Total Bilirubin 0.7 mg/dL (0.2-1.0) Aspartate Amino Transf (AST/SGOT) 37 U/L (15-37) Alanine Aminotransferase (ALT/SGPT) 41 U/L (16-63) Alkaline Phosphatase 56 U/L (46-116) Total Protein 7.3 g/dL (6.4-8.2) Albumin 3.8 g/dL (3.4-5.0) Albumin/Globulin Ratio 1.1 (1.0-1.7) Lipase 83 U/L (73-393) Glucose (Fingerstick) 145 mg/dL (70-99) 227 mg/dL (70-99) Test 05/19/19 07:26 Glucose (Fingerstick) 137 mg/dL (70-99) Medications Current Medications Sodium Chloride 1,000 ml @ 1,000 mls/hr 1X ONCE IV Last administered on 05/18/19at 13:32; Start 05/18/19 at 13:15; Stop 05/18/19 at 14:14; Status DC Ondansetron HCl (Zofran) 4 mg 1X ONCE IV Last administered on 05/18/19at 13:33; Start 05/18/19 at 13:15; Stop 05/18/19 at 13:19; Status DC Morphine Sulfate (Morphine Sulfate) 5 mg 1X STAT IV Last administered on 05/18/19at 13:33; Start 05/18/19 at 13:14; Stop 05/18/19 at 13:24; Status DC Iohexol (Omnipaque 300 Mg/ml) 75 ml 1X ONCE IV Last administered on 05/18/19at 13:59; Start 05/18/19 at 13:45; Stop 05/18/19 at 13:49; Status DC Info (CONTRAST GIVEN -- Rx MONITORING) 1 each PRN DAILY PRN MC SEE COMMENTS; Start 05/18/19 at 14:00; Stop 05/20/19 at 13:59 Morphine Sulfate (Morphine Sulfate) 5 mg 1X STAT IV Last administered on 05/18/19at 15:23; Start 05/18/19 at 15:08; Stop 05/18/19 at 15:10; Status DC Cefazolin Sodium/ Dextrose 50 ml @ 100 mls/hr 1X STAT IV Last administered on 05/18/19at 16:24; Start 05/18/19 at 15:47; Stop 05/18/19 at 16:16; Status DC Vancomycin HCl 2 gm/Sodium Chloride 500 ml @ 250 mls/hr 1X ONCE IV Last administered on 05/18/19at 17:12; Start 05/18/19 at 16:30; Stop 05/18/19 at 18:29; Status DC Ondansetron HCl (Zofran) 4 mg PRN Q8HRS PRN IV NAUSEA/VOMITING; Start 05/18/19 at 16:30; Stop 05/18/19 at 20:35; Status DC Morphine Sulfate (Morphine Sulfate) 4 mg PRN Q2HR PRN IV PAIN Last administered on 05/18/19at 20:35; Start 05/18/19 at 16:30 Acetaminophen (Tylenol) 500 mg 1X STAT PO Last administered on 05/18/19at 18:01; Start 05/18/19 at 17:56; Stop 05/18/19 at 18:00; Status DC Ondansetron HCl (Zofran) 4 mg PRN Q6HRS PRN IV NAUSEA/VOMITING; Start 05/18/19 at 20:30 Ketorolac Tromethamine (Toradol 30mg Vial) 30 mg PRN Q6HRS PRN IVP PAIN; Start 05/18/19 at 20:30 Insulin Human Lispro (HumaLOG) 0-7 UNITS TIDACHC SQ Last administered on 05/18/19at 22:10; Start 05/18/19 at 21:00 Dextrose (Dextrose 50%-Water Syringe) 12.5 gm PRN Q15MIN PRN IV SEE COMMENTS; Start 05/18/19 at 20:30 Dextrose (Iv Dextrose 5%) 250 ml PRN Q15MIN PRN IV SEE COMMENTS; Start 05/18/19 at 20:30 Dicyclomine HCl (Bentyl) 10 mg PRN Q4HRS PRN PO abdominal pain; Start 05/18/19 at 20:30 Acetaminophen (Tylenol) 500 mg PRN Q6HRS PRN PO MILD PAIN / TEMP Last administered on 05/18/19at 22:20; Start 05/18/19 at 20:30 Oxycodone/ Acetaminophen (Percocet 5/325) 1 tab PRN Q6HRS PRN PO MODERATE PAIN, SEVERE PAIN Last administered on 05/19/19at 06:33; Start 05/18/19 at 20:30 Vancomycin HCl (Vanco Per Pharmacy) 1 each PRN DAILY PRN MC SEE COMMENTS Last administered on 05/18/19at 20:42; Start 05/18/19 at 20:30 Vancomycin HCl 1.75 gm/Sodium Chloride 500 ml @ 250 mls/hr Q12H IV ; Start 05/19/19 at 07:30; Status UNV Cefazolin Sodium/ Dextrose 50 ml @ 100 mls/hr Q8HRS IV Last administered on 05/19/19at 05:54; Start 05/18/19 at 22:00 Psyllium Hydrophilic Mucilloid (Metamucil Fiber Packet) 1 pkt QHS PO Last administered on 05/18/19at 22:04; Start 05/18/19 at 21:00 Vancomycin HCl 1.5 gm/Sodium Chloride 500 ml @ 250 mls/hr Q8H IV Last administered on 05/19/19at 00:32; Start 05/19/19 at 01:00 Vancomycin HCl (Vancomycin Trough Level) 1 each 1X ONCE MC ; Start 05/19/19 at 16:30; Stop 05/19/19 at 16:31 Vitals/I & O Vital Sign - Last 24 Hours 05/18/19 05/18/19 05/18/19 05/18/19 11:32 13:14 13:44 14:05 Temp 97.8 97.8 Pulse 98 91 90 86 Resp 18 12 17 16 B/P (MAP) 156/100 (118) 140/75 (96) 129/75 (93) 134/75 (94) Pulse Ox 94 95 96 96 O2 Delivery Room Air Room Air Room Air Room Air 05/18/19 05/18/19 05/18/19 05/18/19 15:05 16:05 17:05 18:05 Pulse 95 86 84 95 Resp 16 17 17 17 B/P (MAP) 174/91 (118) 140/86 (104) 121/83 (96) 149/90 (109) Pulse Ox 95 96 96 96 O2 Delivery Room Air Room Air Room Air Room Air 05/18/19 05/18/19 05/18/19 05/18/19 20:09 20:35 21:00 21:05 Temp 98.8 98.8 Pulse 82 Resp 18 B/P (MAP) 117/74 (88) Pulse Ox 96 96 91 96 O2 Delivery Room Air 05/18/19 05/19/19 05/19/19 05/19/19 23:00 01:58 03:00 06:33 Temp 98.9 98.3 98.9 98.3 Pulse 82 85 Resp 18 18 B/P (MAP) 125/63 (83) 131/71 (91) Pulse Ox 93 93 93 O2 Delivery Room Air Room Air Room Air Room Air 05/19/19 07:00 Temp 98.4 98.4 Pulse 80 Resp 18 B/P (MAP) 126/62 (83) Pulse Ox 94 O2 Delivery Room Air Intake and Output 05/18/19 05/18/19 05/19/19 15:00 23:00 07:00 Intake Total 50 ml Balance 50 ml SARAH CHUNG MD May 19, 2019 08:22
[2019-05-19] MEDS ORDERED: LOSA-73 PO (08:51)
[2019-05-19] MEDS ORDERED: CITA40TA5 PO (08:51)
[2019-05-19] MEDS ORDERED: EMPA25TA PO (08:51)
[2019-05-19] MEDS ORDERED: GABA600T7 PO (08:51)
[2019-05-19] MEDS ORDERED: OXYC1TAB15 PO (08:51)
[2019-05-19] MEDS ORDERED: LORA0.5T96 PO (08:51)
[2019-05-19] MEDS ORDERED: CELE200C PO (08:51)
[2019-05-19] MEDS ORDERED: CRESTOR5 MG PO (08:51)
[2019-05-19] MEDS ORDERED: METF10007 PO (08:51)
[2019-05-19 11:00] VITALS: BP 131/72
[2019-05-19] MEDS ORDERED: LORazepam 0.5 MG TABLET PO PRN (12:30)
[2019-05-19] MEDS: SMZ/TMP 800/160MG TABLET. PO SCH ×2 (13:08→21:01)
[2019-05-19] MEDS: oxyCODONE/APAP 5/325 1 TAB TABLET PO PRN ×2 (13:08→20:13)
[2019-05-19] MEDS: LOSARTAN POTASSIUM 50 MG TABLET. PO SCH (13:08)
[2019-05-19] MEDS: CELECOXIB 100 MG CAPSULE. PO SCH (13:09)
[2019-05-19] MEDS: CEPHALEXIN 250 MG CAPSULE. PO SCH ×2 (13:09→21:01)
--- NOTE | 2019-05-19 13:44 | PDOC2 ---
GI CONSULT Reason For Consult: Abd pain HPI: HPI: Pleasant 59 y/o male admitted through ER yesterday. He has an appointment w/ his digital media planner, Dr. Kam, in a couple days. H/o alternating bowel habits for years which changed sometime in April after he rolled over in bed and "felt something tear" in his upper abdomen. Since that time, has passed smaller amount of stool - either watery or hard pellets w/ a lot of straining. Tried stool softeners and laxatives without much help. Then on Saturday, he developed short bursts of intense pain in RUQ - he lindy circles on his abdomen where he felt the pain. He thinks it might have been precipitated by eating an apple on Saturday night (which he did because apples have fiber and he thought fiber would help his stooling issues). The pain was worse during the night and felt better to lay on it. Associated w/ some decreased appetite. Unchanged w/ eating or stooling, might be better after passing gas. Since admission, had a large watery stool followed by a "good amount" of soft stool. Says he was told skin on right abdomen was red and warm yesterday but doesn't seem to be today. Labs unrevealing. On CT: fatty liver, fatty atrophy of head and neck of pancreas, diverticulosis, subcutaneous edema of the lower abdominal wall on both sides more prominent on the right side. Denies reflux/heartburn, dysphagia, n/v, hematochezia, melena, and weight loss. Sometimes has post-prandial bloating (especially after eating vegetables) and "lots of gas." Takes Tums PRN. Had an EGD w/ Dr. Kam years ago w/ duodenal ulcer. Remembers taking Prilosec and Propulsid in the past. Has had several colonoscopies with Dr. Kam - maybe one with polyps, also remembers diverticulosis and reports h/o "fissure or hemorrhoids." S/p cholecystectomy (says "for dumping" - denies stones - also says epigastrium has "felt spongy" since surgery). Around age 13 had jaundice and years later it was suggested he might have had hepatitis but had labs w/ Dr. Kendall who told him he did not have hepatitis but probably had leptospirosis. No pancreas history. Takes oxycodone for joint pain PRN and less frequently ibuprofen (though on Celebrex here). PMH: PMH: DM, HLD, anxiety right meniscus repair x 2, left shoulder and bicep repair, right inguinal hernia repair, cholecystectomy, tonsillectomy FH: Family History: Cancer (mother - lymphoma, father - SCLC, sister - thyroid and skin) Social History: Smoke: No ALCOHOL: none Drugs: None ROS: GEN: Denies fevers, chills, sweats HEENT: Denies blurred vision, sore throat CV: Denies chest pain RESP: Denies shortness of air, cough GI: Per HPI : Denies hematuria, dysuria ENDO: Denies weight changes NEURO: Denies confusion, dizziness MSK: Denies weakness, joint pain/swelling SKIN: Denies jaundice, pruritus Vitals: Vitals: Vital Signs Date Time Temp Pulse Resp B/P (MAP) Pulse Ox O2 Delivery O2 Flow Rate FiO2 05/19/19 13:08 98 131/72 05/19/19 13:08 16 Room Air 05/19/19 11:00 97.6 96 97.6 Labs: Labs: Laboratory Tests Test 05/18/19 18:37 05/18/19 20:34 05/19/19 04:13 05/19/19 07:26 Glucose (Fingerstick) 145 mg/dL (70-99) 227 mg/dL (70-99) 137 mg/dL (70-99) Creatinine 0.6 mg/dL (0.7-1.3) Estimated GFR (Cockcroft-Gault) 137.4 Test 05/19/19 10:54 Glucose (Fingerstick) 162 mg/dL (70-99) Allergies: Coded Allergies: codeine (Verified Allergy, Intermediate, 05/18/19) prochlorperazine (Verified Allergy, Intermediate, 05/18/19) Medications: Current Medications Medications (Trade) Dose Ordered Sig/Romi Route PRN Reason Start Time Stop Time Status Last Admin Dose Admin Iohexol (Omnipaque 300 Mg/ml) 75 ml 1X ONCE IV 05/18/19 13:45 05/18/19 13:49 DC 05/18/19 13:59 Morphine Sulfate (Morphine Sulfate) 5 mg 1X STAT IV 05/18/19 15:08 05/18/19 15:10 DC 05/18/19 15:23 Cefazolin Sodium/ Dextrose 50 ml @ 100 mls/hr 1X STAT IV 05/18/19 15:47 05/19/19 12:08 DC 05/18/19 16:24 Vancomycin HCl 2 gm/Sodium Chloride 500 ml @ 250 mls/hr 1X ONCE IV 05/18/19 16:30 05/19/19 12:08 DC 05/18/19 17:12 Morphine Sulfate (Morphine Sulfate) 4 mg PRN Q2HR PRN IV PAIN 05/18/19 16:30 05/18/19 20:35 Acetaminophen (Tylenol) 500 mg 1X STAT PO 05/18/19 17:56 05/18/19 18:00 DC 05/18/19 18:01 Insulin Human Lispro (HumaLOG) 0-7 UNITS TIDACHC SQ 05/18/19 21:00 05/18/19 22:10 Acetaminophen (Tylenol) 500 mg PRN Q6HRS PRN PO MILD PAIN / TEMP 05/18/19 20:30 05/18/19 22:20 Oxycodone/ Acetaminophen (Percocet 5/325) 1 tab PRN Q6HRS PRN PO MODERATE PAIN, SEVERE PAIN 05/18/19 20:30 05/19/19 12:10 DC 05/19/19 06:33 Vancomycin HCl (Vanco Per Pharmacy) 1 each PRN DAILY PRN MC SEE COMMENTS 05/18/19 20:30 05/19/19 12:08 DC 05/18/19 20:42 Cefazolin Sodium/ Dextrose 50 ml @ 100 mls/hr Q8HRS IV 05/18/19 22:00 05/19/19 12:08 DC 05/19/19 05:54 Psyllium Hydrophilic Mucilloid (Metamucil Fiber Packet) 1 pkt QHS PO 05/18/19 21:00 05/18/19 22:04 Vancomycin HCl 1.5 gm/Sodium Chloride 500 ml @ 250 mls/hr Q8H IV 05/19/19 01:00 05/19/19 12:08 DC 05/19/19 10:03 Trimethoprim/ Sulfamethoxazole (Bactrim Ds) 1 tab BID PO 05/19/19 12:15 05/19/19 13:08 Cephalexin HCl (Keflex) 500 mg BID PO 05/19/19 12:15 05/19/19 13:09 Oxycodone/ Acetaminophen (Percocet 5/325) 1 tab PRN Q4HRS PRN PO MODERATE PAIN, SEVERE PAIN 05/19/19 12:15 05/19/19 13:08 Losartan Potassium (Cozaar) 50 mg DAILY PO 05/19/19 13:00 05/19/19 13:08 Celecoxib (CeleBREX) 200 mg DAILY PO 05/19/19 13:00 05/19/19 13:09 Imaging: Imaging: CT A/P 05/18/19 FINDINGS: Diffuse fatty infiltration of the liver is seen. The spleen is not enlarged. Fatty atrophy of the head and neck of the pancreas is seen. No pancreatic mass is seen. Gallbladder is surgically absent. No extrahepatic biliary ductal dilatation is seen. No adrenal mass is evident. Both kidneys are normal without hydronephrosis. No focal aneurysmal dilatation of the abdominal aorta is seen. No enlarged abdominal or pelvic lymphadenopathy is seen. Urinary bladder wall is smooth. The terminal ileum and appendix are normal. No obstructive bowel pattern is evident. No free air or free fluid or mesenteric edema is seen. No abnormal fecal retention is seen. Mild colonic diverticulosis is seen without diverticulitis. Calcified granuloma of the right middle lobe is seen. No lytic process is seen. IMPRESSION: There is subcutaneous edema of the lower abdominal wall on both sides more prominent on the right side. This could be due to bruising or cellulitis if there are clinical findings of such. No fluid collection or abscess is seen here. No anterior abdominal wall hernia is evident. No other acute abnormality of the abdomen or pelvis is seen. PE: GEN: NAD HEENT: Atraumatic, PERRL LUNGS: CTAB HEART: RRR ABD: NABS, soft, non-specific right-sided discomfort and some in epigastrium EXTREMITY: No edema SKIN: no redness or warmth - circles he lindy noted in RUQ area NEURO/PSYCH: A & O 3 A/P: A/P: Right-sided abd pain, change in bowel habits Abnormal CT - subcutaneous edema of the lower abdominal wall on both sides more prominent on the right side Bloating, h/o DU CRC screen, h/o polyps - previous colonoscopies w/ Dr. Kam H/o alternating bowel habits - ?IBS Diverticulosis S/p cholecystectomy H/o jaundice as a teenager - says previously evaluated by Dr. Kendall Fatty liver - noted on CT NSAID use -- Stooling more now - note stool culture and C Diff sent. Interesting history - sounds like IBS/chronic issues w/ irregularity - ?try f iber Add acid-sheep boner for post-prandial bloating and h/o DU. Other per Dr. Wolff. SHAN BRANDT May 19, 2019 13:44
[2019-05-19] MEDS: GABAPENTIN 300 MG CAPSULE. PO SCH ×2 (13:57→21:01)
[2019-05-19] MEDS: PANTOPRAZOLE 40 MG TABLET.DR. PO SCH (13:57)
[2019-05-19] MEDS ORDERED: CALCIUM CARBONATE 500 MG TAB.CHEW PO PRN (14:00)
[2019-05-19 15:00] VITALS: BP 150/99
[2019-05-19] MEDS ORDERED: CITALOPRAM 20 MG TABLET. ONE (15:02)
[2019-05-19] MEDS ORDERED: CITALOPRAM 20 MG TABLET. PO SCH (15:30)
[2019-05-19 19:45] VITALS: BP 171/98
[2019-05-19] MEDS ORDERED: ATORVASTATIN CALCIUM 40 MG TABLET. PO SCH (21:00)
[2019-05-19] MEDS: PSYLLIUM HUSK (SUGAR FREE) 1 PKT PACKET PO SCH (21:01)
[2019-05-19] MEDS: LACTOBACILLUS RHAMNOSUS GG 1 CAPSULE. PO SCH (21:01)
[2019-05-19 23:54] VITALS: BP 154/87
[2019-05-20 03:30] VITALS: BP 126/62
[2019-05-20 05:21] LABS: CREATININE 0.8 mg/dL (0.7-1.3); GFR 98.6
[2019-05-20 07:00] VITALS: BP 123/71
[2019-05-20] MEDS: INSULIN LISPRO 300 UNITS/3 ML VIAL. SQ SCH ×2 (07:30→11:55)
--- NOTE | 2019-05-20 07:49 | PDOC ---
PROGRESS NOTES Chief Complaint Chief Complaint A/P: Abdominal wall cellulitis - empiric vancomycin and ancef for staph and strep coverage. Change insulin injection sites. Will change to PO antibiotics given his improvement Intractable abdominal pain - unable to take PO currently due to nausea with pain. Will treat with IV anti-emetics and IV pain medication Headache - will trial on IV toradol Anxiety - counseled on relaxation Constipation - with Diverticulosis - will increase fiber High Cholesterol - will reconcile meds, statin Diabetes-Type II - basal bolus plus insulin while inpatient Fatty liver - found on CT, likely related to DM2, weight Obesity - counseled on weight loss, diet FEN - ADA diet PPX - lovenox FULL CODE Dispo - inpatient for abdominal pain. History of Present Illness History of Present Illness Mr Thompson is a 59yo M w/ PMHx Anxiety, Constipation, Diabetes-Type II, Diverticulosis, High Cholesterol, obesity, who p/w abdominal pain. Patient states that in early April he was moving and feels that he tore something in his abdomen and since then has been having decreasing bowel movements. He states the last 3-4 weeks he is not been able to have a bowel movement, states that he has had a couple of times recent pellets, or a little bit diarrhea. The patient also stating he is feeling nauseous. Last week he is tried MiraLAX and stool softeners and has not helped. Pain is 8 out of 10 in severity and sharp. Pain is located in the right lower quadrant. He does note he injects insulin, but states his injection sites are lower than his symptom site. Abdominal CT consistent with abdominal wall cellulitis, no intra-abdominal pathology other than diverticulosis. He notes his bowel movements have been different. 05/19: His abdominal wall has improved, but his bowels have worsened, had voluminous watery BM this morning. No change in his appetite, eating very well. On further review, notes he has had multiple prior colonoscopies. He had some pain this morning, feeling better, had normal BM after psyllium. Tolerating bactrim and keflex well. Abdominal cellulitis clearing up. Feels ready for discharge. Vitals Vitals Vital Signs Date Time Temp Pulse Resp B/P (MAP) Pulse Ox O2 Delivery O2 Flow Rate FiO2 05/20/19 03:30 97.9 80 20 126/62 (83) 92 Room Air 97.9 Physical Exam General: Alert, Oriented X3, Cooperative, No acute distress Abdomen: Normal bowel sounds, No hepatosplenomegaly, No masses, Other (diffusely tender, red, warm on right abdominal wall, marked) Extremities: No clubbing, No cyanosis, No edema, Normal pulses, No tenderness/ swelling Skin: No breakdown, No significant lesion, Other (Abdominal rash on right abdominal wall) Labs LABS Laboratory Tests Test 05/19/19 10:54 05/19/19 17:13 05/20/19 04:05 Glucose (Fingerstick) 162 mg/dL (70-99) 136 mg/dL (70-99) Creatinine 0.8 mg/dL (0.7-1.3) Estimated GFR (Cockcroft-Gault) 98.6 Assessment and Plan Assessmemt and Plan Problems Medical Problems: (1) Cellulitis Status: Acute (2) Intractable abdominal pain Status: Acute Comment Review of Relevant I have reviewed the following items oma (where applicable) has been applied. Labs Laboratory Tests Test 05/18/19 13:00 05/18/19 18:37 05/18/19 20:34 05/19/19 04:13 White Blood Count 4.9 x10^3/uL (4.0-11.0) Red Blood Count 5.15 x10^6/uL (4.30-5.70) Hemoglobin 14.9 g/dL (13.0-17.5) Hematocrit 45.2 % (39.0-53.0) Mean Corpuscular Volume 88 fL (79-100) Mean Corpuscular Hemoglobin 29 pg (25-35) Mean Corpuscular Hemoglobin Concent 33 g/dL (31-37) Red Cell Distribution Width 15.0 % (11.5-14.5) Platelet Count 163 x10^3/uL (140-400) Neutrophils (%) (Auto) 70 % (31-73) Lymphocytes (%) (Auto) 21 % (24-48) Monocytes (%) (Auto) 8 % (0-9) Eosinophils (%) (Auto) 1 % (0-3) Basophils (%) (Auto) 0 % (0-3) Neutrophils # (Auto) 3.4 x10^3/uL (1.8-7.7) Lymphocytes # (Auto) 1.0 x10^3/uL (1.0-4.8) Monocytes # (Auto) 0.4 x10^3/uL (0.0-1.1) Eosinophils # (Auto) 0.1 x10^3/uL (0.0-0.7) Basophils # (Auto) 0.0 x10^3/uL (0.0-0.2) Urine Collection Type Unknown Urine Color Yellow Urine Clarity Clear Urine pH 5.5 Urine Specific Quail >=1.030 Urine Protein Negative mg/dL (NEG-TRACE) Urine Glucose (UA) >=1000 mg/dL (NEG) Urine Ketones (Stick) Trace mg/dL (NEG) Urine Blood Negative (NEG) Urine Nitrite Negative (NEG) Urine Bilirubin Negative (NEG) Urine Urobilinogen Dipstick 0.2 mg/dL (0.2 mg/dL) Urine Leukocyte Esterase Negative (NEG) Urine RBC Occ /HPF (0-2) Urine WBC Occ /HPF (0-4) Urine Squamous Epithelial Cells Few /LPF Urine Bacteria 0 /HPF (0-FEW) Urine Mucus Slight /LPF Sodium Level 139 mmol/L (136-145) Potassium Level 4.2 mmol/L (3.5-5.1) Chloride Level 102 mmol/L (98-107) Carbon Dioxide Level 30 mmol/L (21-32) Anion Gap 7 (6-14) Blood Urea Nitrogen 8 mg/dL (8-26) Creatinine 0.7 mg/dL (0.7-1.3) 0.6 mg/dL (0.7-1.3) Estimated GFR (Cockcroft-Gault) 115.0 137.4 BUN/Creatinine Ratio 11 (6-20) Glucose Level 122 mg/dL (70-99) Lactic Acid Level 1.6 mmol/L (0.4-2.0) Calcium Level 8.9 mg/dL (8.5-10.1) Total Bilirubin 0.7 mg/dL (0.2-1.0) Aspartate Amino Transf (AST/SGOT) 37 U/L (15-37) Alanine Aminotransferase (ALT/SGPT) 41 U/L (16-63) Alkaline Phosphatase 56 U/L (46-116) Total Protein 7.3 g/dL (6.4-8.2) Albumin 3.8 g/dL (3.4-5.0) Albumin/Globulin Ratio 1.1 (1.0-1.7) Lipase 83 U/L (73-393) Glucose (Fingerstick) 145 mg/dL (70-99) 227 mg/dL (70-99) Test 05/19/19 07:26 05/19/19 10:54 05/19/19 17:13 05/20/19 04:05 Glucose (Fingerstick) 137 mg/dL (70-99) 162 mg/dL (70-99) 136 mg/dL (70-99) Creatinine 0.8 mg/dL (0.7-1.3) Estimated GFR (Cockcroft-Gault) 98.6 Laboratory Tests Test 05/19/19 10:54 05/19/19 17:13 05/20/19 04:05 Glucose (Fingerstick) 162 mg/dL (70-99) 136 mg/dL (70-99) Creatinine 0.8 mg/dL (0.7-1.3) Estimated GFR (Cockcroft-Gault) 98.6 Medications Current Medications Sodium Chloride 1,000 ml @ 1,000 mls/hr 1X ONCE IV Last administered on 05/18/19at 13:32; Start 05/18/19 at 13:15; Stop 05/18/19 at 14:14; Status DC Ondansetron HCl (Zofran) 4 mg 1X ONCE IV Last administered on 05/18/19at 13:33; Start 05/18/19 at 13:15; Stop 05/18/19 at 13:19; Status DC Morphine Sulfate (Morphine Sulfate) 5 mg 1X STAT IV Last administered on 05/18/19at 13:33; Start 05/18/19 at 13:14; Stop 05/18/19 at 13:24; Status DC Iohexol (Omnipaque 300 Mg/ml) 75 ml 1X ONCE IV Last administered on 05/18/19at 13:59; Start 05/18/19 at 13:45; Stop 05/18/19 at 13:49; Status DC Info (CONTRAST GIVEN -- Rx MONITORING) 1 each PRN DAILY PRN MC SEE COMMENTS; Start 05/18/19 at 14:00; Stop 05/20/19 at 13:59 Morphine Sulfate (Morphine Sulfate) 5 mg 1X STAT IV Last administered on 05/18/19at 15:23; Start 05/18/19 at 15:08; Stop 05/18/19 at 15:10; Status DC Cefazolin Sodium/ Dextrose 50 ml @ 100 mls/hr 1X STAT IV Last administered on 05/18/19at 16:24; Start 05/18/19 at 15:47; Stop 05/19/19 at 12:08; Status DC Vancomycin HCl 2 gm/Sodium Chloride 500 ml @ 250 mls/hr 1X ONCE IV Last administered on 05/18/19at 17:12; Start 05/18/19 at 16:30; Stop 05/19/19 at 12:08; Status DC Ondansetron HCl (Zofran) 4 mg PRN Q8HRS PRN IV NAUSEA/VOMITING; Start 05/18/19 at 16:30; Stop 05/18/19 at 20:35; Status DC Morphine Sulfate (Morphine Sulfate) 4 mg PRN Q2HR PRN IV SEVERE PAIN Last administered on 05/18/19at 20:35; Start 05/18/19 at 16:30 Acetaminophen (Tylenol) 500 mg 1X STAT PO Last administered on 05/18/19at 18:01; Start 05/18/19 at 17:56; Stop 05/18/19 at 18:00; Status DC Ondansetron HCl (Zofran) 4 mg PRN Q6HRS PRN IV NAUSEA/VOMITING; Start 05/18/19 at 20:30 Ketorolac Tromethamine (Toradol 30mg Vial) 30 mg PRN Q6HRS PRN IVP MODERATE PAIN Last administered on 05/19/19at 16:45; Start 05/18/19 at 20:30 Insulin Human Lispro (HumaLOG) 0-7 UNITS TIDACHC SQ Last administered on 05/18/19at 22:10; Start 05/18/19 at 21:00 Dextrose (Dextrose 50%-Water Syringe) 12.5 gm PRN Q15MIN PRN IV SEE COMMENTS; Start 05/18/19 at 20:30 Dextrose (Iv Dextrose 5%) 250 ml PRN Q15MIN PRN IV SEE COMMENTS; Start 05/18/19 at 20:30 Dicyclomine HCl (Bentyl) 10 mg PRN Q4HRS PRN PO abdominal pain; Start 05/18/19 at 20:30 Acetaminophen (Tylenol) 500 mg PRN Q6HRS PRN PO MILD PAIN / TEMP Last administered on 05/18/19at 22:20; Start 05/18/19 at 20:30 Oxycodone/ Acetaminophen (Percocet 5/325) 1 tab PRN Q6HRS PRN PO MODERATE PAIN, SEVERE PAIN Last administered on 05/19/19at 06:33; Start 05/18/19 at 20:30; Stop 05/19/19 at 12:10; Status DC Vancomycin HCl (Vanco Per Pharmacy) 1 each PRN DAILY PRN MC SEE COMMENTS Last administered on 05/18/19at 20:42; Start 05/18/19 at 20:30; Stop 05/19/19 at 12:08; Status DC Vancomycin HCl 1.75 gm/Sodium Chloride 500 ml @ 250 mls/hr Q12H IV ; Start 05/19/19 at 07:30; Status UNV Cefazolin Sodium/ Dextrose 50 ml @ 100 mls/hr Q8HRS IV Last administered on 05/19/19at 05:54; Start 05/18/19 at 22:00; Stop 05/19/19 at 12:08; Status DC Psyllium Hydrophilic Mucilloid (Metamucil Fiber Packet) 1 pkt QHS PO Last administered on 05/19/19at 21:01; Start 05/18/19 at 21:00 Vancomycin HCl 1.5 gm/Sodium Chloride 500 ml @ 250 mls/hr Q8H IV Last administered on 05/19/19at 10:03; Start 05/19/19 at 01:00; Stop 05/19/19 at 12:08; Status DC Vancomycin HCl (Vancomycin Trough Level) 1 each 1X ONCE MC ; Start 05/19/19 at 16:30; Stop 05/19/19 at 16:31; Status Cancel Trimethoprim/ Sulfamethoxazole (Bactrim Ds) 1 tab BID PO Last administered on 05/19/19at 21:01; Start 05/19/19 at 12:15 Cephalexin HCl (Keflex) 500 mg BID PO Last administered on 05/19/19at 21:01; Start 05/19/19 at 12:15 Oxycodone/ Acetaminophen (Percocet 5/325) 1 tab PRN Q4HRS PRN PO MODERATE PAIN, SEVERE PAIN Last administered on 05/19/19at 20:13; Start 05/19/19 at 12:15 Lorazepam (Ativan) 0.5 mg PRN Q8HRS PRN PO ANXIETY / AGITATION; Start 05/19/19 at 12:30 Losartan Potassium (Cozaar) 50 mg DAILY PO Last administered on 05/19/19at 13:08; Start 05/19/19 at 13:00 Celecoxib (CeleBREX) 200 mg DAILY PO Last administered on 05/19/19at 13:09; Start 05/19/19 at 13:00 Citalopram Hydrobromide (CeleXA) 40 mg QHS PO Last administered on 05/19/19at 15:14; Start 05/19/19 at 15:30 Non-Formulary Medication (Empagliflozin (Jardiance)) 25 mg DAILY PO ; Start 05/20/19 at 09:00; Status UNV Gabapentin (Neurontin) 300 mg TID PO Last administered on 05/19/19at 21:01; Start 05/19/19 at 14:00 Metformin HCl (Glucophage) 1,000 mg BIDWMEALS PO ; Start 05/20/19 at 17:00 Atorvastatin Calcium (Lipitor) 40 mg QHS PO Last administered on 05/19/19at 21:01; Start 05/19/19 at 21:00 Pantoprazole Sodium (Protonix) 40 mg DAILYAC PO Last administered on 05/19/19at 13:57; Start 05/19/19 at 14:00 Calcium Carbonate/ Glycine (Tums) 500 mg PRN AFTMEALHC PRN PO INDIGESTION; Start 05/19/19 at 14:00 Lactobacillus Rhamnosus (Culturelle) 1 cap BID PO Last administered on 05/19/19at 21:01; Start 05/19/19 at 21:00 Citalopram Hydrobromide (CeleXA) 20 mg STK-MED ONCE .ROUTE ; Start 05/19/19 at 15:02; Stop 05/19/19 at 15:03; Status DC Active Scripts Active Reported Losartan Potassium 50 Mg Tablet 50 Mg PO DAILY Crestor (Rosuvastatin Calcium) 5 Mg Tablet 10 Mg PO HS Celebrex (Celecoxib) 200 Mg Capsule 1 Cap PO DAILY Gabapentin 600 Mg Tablet 300 Mg PO TID Ativan (Lorazepam) 0.5 Mg Tablet 0.5 Mg PO PRN Q8HRS PRN Citalopram Hbr (Citalopram Hydrobromide) 40 Mg Tablet 1 Tab PO HS Jardiance (Empagliflozin) 25 Mg Tablet 25 Mg PO DAILY Percocet 5-325 Mg Tablet (Oxycodone/Acetaminophen) 1 Each Tablet 1-2 Tab PO PRN Q4HRS PRN Metformin Hcl 1,000 Mg Tablet 1,000 Mg PO BIDWMEALS Vitals/I & O Vital Sign - Last 24 Hours 05/19/19 05/19/19 05/19/19 05/19/19 08:00 08:34 11:00 13:08 Temp 97.6 97.6 Pulse 98 Resp 16 18 16 B/P (MAP) 131/72 (91) Pulse Ox 96 O2 Delivery Room Air Room Air Room Air Room Air 05/19/19 05/19/19 05/19/19 05/19/19 13:08 14:52 15:00 19:45 Temp 98.1 98.3 98.1 98.3 Pulse 98 86 87 Resp 16 18 20 B/P (MAP) 131/72 150/99 (116) 171/98 (122) Pulse Ox 91 95 O2 Delivery Room Air Room Air Room Air 05/19/19 05/19/19 05/19/19 05/19/19 20:00 20:13 21:13 23:54 Temp 98.0 98.0 Pulse 69 Resp 20 B/P (MAP) 154/87 (109) Pulse Ox 91 91 96 O2 Delivery Room Air Room Air Room Air Room Air 05/20/19 03:30 Temp 97.9 97.9 Pulse 80 Resp 20 B/P (MAP) 126/62 (83) Pulse Ox 92 O2 Delivery Room Air Intake and Output 05/19/19 05/19/19 05/20/19 15:00 23:00 07:00 Intake Total 940 ml 350 ml 450 ml Balance 940 ml 350 ml 450 ml SARAH CHUNG MD May 20, 2019 07:49
[2019-05-20] MEDS: LOSARTAN POTASSIUM 50 MG TABLET. PO SCH (08:32)
[2019-05-20] MEDS: LACTOBACILLUS RHAMNOSUS GG 1 CAPSULE. PO SCH (08:33)
[2019-05-20] MEDS: SMZ/TMP 800/160MG TABLET. PO SCH (08:33)
[2019-05-20] MEDS: CEPHALEXIN 250 MG CAPSULE. PO SCH (08:33)
[2019-05-20] MEDS: GABAPENTIN 300 MG CAPSULE. PO SCH (08:33)
[2019-05-20] MEDS: PANTOPRAZOLE 40 MG TABLET.DR. PO SCH (08:33)
[2019-05-20] MEDS: CELECOXIB 100 MG CAPSULE. PO SCH (08:33)
[2019-05-20] MEDS: oxyCODONE/APAP 5/325 1 TAB TABLET PO PRN (08:40)
[2019-05-20] MEDS ORDERED: NON FORMULARY ITEM (Empagliflozin (Jardiance) 25 MG) PO SCH (09:00)
--- NOTE | 2019-05-20 10:45 | PDOC ---
Subjective: Subjective: Didn't feel too great this morning - abd discomfort in the middle, "on fire" but not burning, felt icky, maybe nausea. Related to PO atbx? Ate toast but gave the rest of breakfast to his . Zofran/Percocet helped. Has had a few "piddly" stools - "not solid but not loose." Abd discomfort is better overall. Wondering about discharge and if he should cancel his appt w/ Dr. Kam tomorrow. Objective: Objective: D/w nurse - overnight asked if he had a Zofran pill ordered to give to his . Vital Signs: Vital Signs Date Time Temp Pulse Resp B/P (MAP) Pulse Ox O2 Delivery O2 Flow Rate FiO2 05/20/19 09:57 16 Room Air 05/20/19 08:32 84 123/71 05/20/19 07:00 98.3 92 98.3 Labs: Laboratory Tests Test 05/19/19 10:54 05/19/19 12:30 05/19/19 17:13 05/20/19 04:05 Glucose (Fingerstick) 162 mg/dL 136 mg/dL Clostridium difficile Toxin B Gene Negative Creatinine 0.8 mg/dL Estimated GFR (Cockcroft-Gault) 98.6 PE: GEN: NAD, was asleep LUNGS: CTAB anteriorly HEART: RRR ABD: tender under left rib, also periumbilical/right side inside drawn hughes NEURO/PSYCH: A & O 3 A/P: Abd pain Abnormal CT - subcutaneous edema of the lower abdominal wall on both sides more prominent on the right side Irregular bowel habits - chronic -- Variety of symptoms - hard to discern - chronic GI issues. DC per primary - has plans to see Dr. Kam. SHAN BRANDT May 20, 2019 10:45
[2019-05-20 11:00] VITALS: BP 117/64
[2019-05-20] MEDS ORDERED: CEPH250C PO (13:15)
[2019-05-20] MEDS ORDERED: Smz/Tmp 800/160MG PO (13:15)
[2019-05-20] MEDS ORDERED: DICY10CA3 PO (13:15)
--- NOTE | 2019-05-20 14:02 | NUR ---
Discharge instructions and belongings reviewed with patient, verbalized understanding. Patient was escorted out via ambulation by Rony WRAY accompanied by his Kyra.
--- NOTE | 2019-05-20 14:12 | PDOC3 ---
Discharge Summary Visit Information Date of Admission: May 18, 2019 Date of Discharge: May 20, 2019 Admitting Diagnosis: Abdominal cellulitis, abdominal pain Final Diagnosis Problems Medical Problems: (1) Cellulitis Status: Acute (2) Intractable abdominal pain Status: Acute Brief Hospital Course Allergies Allergies Coded Allergies Type Severity Reaction Last Updated Verified codeine Allergy Intermediate 05/18/19 Yes prochlorperazine Allergy Intermediate 05/18/19 Yes Vital Signs Vital Signs Date Time Temp Pulse Resp B/P (MAP) Pulse Ox O2 Delivery O2 Flow Rate FiO2 05/20/19 11:00 98.4 75 18 117/64 (81) 93 Room Air 98.4 Lab Results Laboratory Tests Test 05/18/19 18:37 05/18/19 20:34 05/19/19 04:13 05/19/19 07:26 Glucose (Fingerstick) 145 mg/dL (70-99) 227 mg/dL (70-99) 137 mg/dL (70-99) Creatinine 0.6 mg/dL (0.7-1.3) Estimated GFR (Cockcroft-Gault) 137.4 Test 05/19/19 10:54 05/19/19 12:30 05/19/19 17:13 05/20/19 04:05 Glucose (Fingerstick) 162 mg/dL (70-99) 136 mg/dL (70-99) Clostridium difficile Toxin B Gene Negative (Negative) Creatinine 0.8 mg/dL (0.7-1.3) Estimated GFR (Cockcroft-Gault) 98.6 Laboratory Tests Test 05/19/19 17:13 05/20/19 04:05 Glucose (Fingerstick) 136 mg/dL (70-99) Creatinine 0.8 mg/dL (0.7-1.3) Estimated GFR (Cockcroft-Gault) 98.6 Brief Hospital Course Mr Thompson is a 59yo M w/ PMHx Anxiety, Constipation, Diabetes-Type II, Diverticulosis, High Cholesterol, obesity, who p/w abdominal pain. Patient states that in early April he was moving and feels that he tore something in his abdomen and since then has been having decreasing bowel movements. He states the last 3-4 weeks he is not been able to have a bowel movement, states that he has had a couple of times recent pellets, or a little bit diarrhea. The patient also stating he is feeling nauseous. Last week he is tried MiraLAX and stool softeners and has not helped. Pain is 8 out of 10 in severity and sharp. Pain is located in the right lower quadrant. He does note he injects insulin, but states his injection sites are lower than his symptom site. Abdominal CT consistent with abdominal wall cellulitis, no intra-abdominal pathology other than diverticulosis. He notes his bowel movements have been different. 05/19: His abdominal wall has improved, but his bowels have worsened, had voluminous watery BM this morning. No change in his appetite, eating very well. On further review, notes he has had multiple prior colonoscopies. He had some pain this morning, feeling better, had normal BM after psyllium. Tolerating bactrim and keflex well. Abdominal cellulitis clearing up. Feels ready for discharge. Seen by GI, will have GI appt tomorrow. A/P: Abdominal wall cellulitis - empiric vancomycin and ancef for staph and strep coverage. Change insulin injection sites. Will change to PO antibiotics given his improvement Intractable abdominal pain - unable to take PO currently due to nausea with pain. Will treat with IV anti-emetics and IV pain medication Headache - will trial on IV toradol Anxiety - counseled on relaxation Constipation - with Diverticulosis - will increase fiber High Cholesterol - will reconcile meds, statin Diabetes-Type II - basal bolus plus insulin while inpatient Fatty liver - found on CT, likely related to DM2, weight Obesity - counseled on weight loss, diet Greater than 30 minutes spent on d/c Discharge Information Condition at Discharge: Improved Follow Up: Weeks (1) Disposition/Orders: D/C to Home Scheduled Celecoxib (Celebrex) 200 Mg Capsule, 1 CAP PO DAILY for ARTHRITIS, #30 Ref 2 (Reported) Entered as Reported by: ANGIE MAGALLANES RN on 05/19/19 0851 Last Action: Converted on 05/19/19 1219 by SARAH CHUNG MD Cephalexin (Cephalexin) 250 Mg Capsule, 500 MG PO BID for Cellulitis for 7 Days, #28 Prescribed by: SARAH CHUNG MD on 05/20/19 1315 Citalopram Hydrobromide (Citalopram Hbr) 40 Mg Tablet, 1 TAB PO HS for DEP/ANX, #90 Ref 1 (Reported) Entered as Reported by: ANGIE MAGALLANES RN on 05/19/19850 Last Action: Converted on 05/19/191218 by SARAH CHUNG MD Empagliflozin (Jardiance) 25 Mg Tablet, 25 MG PO DAILY for DM, (Reported) Entered as Reported by: ANGIE MAGALLANES RN on 05/19/19850 Last Action: Converted on 05/19/191218 by SARAH CHUNG MD Gabapentin (Gabapentin) 600 Mg Tablet, 300 MG PO TID for NEUROGENIC PAIN, (Reported) Entered as Reported by: ANGIE MAGALLANES RN on 05/19/19850 Last Action: Converted on 05/19/191218 by SARAH CHUNG MD Losartan Potassium (Losartan Potassium) 50 Mg Tablet, 50 MG PO DAILY for HYPERTENSION, (Reported) Entered as Reported by: ANGIE MAGALLANES RN on 05/19/19850 Last Action: Continued on 05/19/191218 by SARAH CHUNG MD Metformin Hcl (Metformin Hcl) 1,000 Mg Tablet, 1,000 MG PO BIDWMEALS for DM, (Reported) Entered as Reported by: ANGIE MAGALLANES RN on 05/19/19850 Last Action: Converted on 05/19/191218 by SARAH CHUNG MD Rosuvastatin Calcium (Crestor) 5 Mg Tablet, 10 MG PO HS for HLD, #30 Ref 5 (Reported) Entered as Reported by: ANGIE MAGALLANES RN on 05/19/19850 Last Action: Converted on 05/19/191218 by SARAH CHUNG MD [Smz/Tmp 800/160MG] 1 TAB TABLET, 1 TAB PO BID for Cellulitis for 7 Days, #14 Prescribed by: SARAH CHUNG MD on 05/20/19 1315 Scheduled PRN Dicyclomine Hcl (Dicyclomine Hcl) 10 Mg Capsule, 10 MG PO PRN Q4HRS PRN for abdominal pain for 10 Days, #30 Prescribed by: SARAH CHUNG MD on 05/20/19 1315 Lorazepam (Ativan) 0.5 Mg Tablet, 0.5 MG PO PRN Q8HRS PRN for ANXIETY / AGITATION, (Reported) Entered as Reported by: ANGIE MAGALLANES RN on 05/19/19850 Last Action: Continued on 05/19/191218 by SARAH CHUNG MD Oxycodone/Apap 5-325 (Percocet 5-325 Mg Tablet ) 1 Each Tablet, 1-2 TAB PO PRN Q4HRS PRN for PAIN, Ref 0 (Reported) Entered as Reported by: ANGIE MAGALLANES RN on 05/19/19850 Last Action: New Order on 05/19/19850 by SHUBHAM CASAS CHRISTOPHER S MD May 20, 2019 14:12
[2019-05-20] MEDS ORDERED: metFORMIN 500 MG TABLET PO SCH (17:00)
== END 2019-05-20 14:04 | disposition home or self-care (01) | DRG 603 ==
LOC: ER 11:32 → EDSEX 11:32 → ED HOLD 16:15 → 4 NORTH 19:30
PROVIDERS: ADMIT Internal Medicine; ATTEND Internal Medicine
DX: L03.311 Cellulitis of abdominal wall (principal); K57.90 Diverticulosis of intestine, part unspecified, without perforation or abscess without bleeding; E11.9 Type 2 diabetes mellitus without complications; E66.9 Obesity, unspecified; E78.00 Pure hypercholesterolemia, unspecified; E78.5 Hyperlipidemia, unspecified; F41.9 Anxiety disorder, unspecified; K26.9 Duodenal ulcer, unspecified as acute or chronic, without hemorrhage or perforation; K40.90 Unilateral inguinal hernia, without obstruction or gangrene, not specified as recurrent; K59.00 Constipation, unspecified; K76.0 Fatty (change of) liver, not elsewhere classified; Z80.7 Family history of other malignant neoplasms of lymphoid, hematopoietic and related tissues; Z83.3 Family history of diabetes mellitus; Z90.49 Acquired absence of other specified parts of digestive tract; Z96.659 Presence of unspecified artificial knee joint; Z68.36 Body mass index [BMI] 36.0-36.9, adult; Z88.8 Allergy status to other drugs, medicaments and biological substances
CPT/HCPCS: 36415; 74177; 80053; 81001; 82565; 82962; 83605; 83690; 85025; 87045; 87493; 96361; 96365; 96366; 96368; 96375; J0696; J1815; J1885; J2270; J2405; J3370; J7030; J7040; Q9967; 99285-25; G0378